=== PATIENT | male | born 1975 | race Caucasian/White ===

== ENCOUNTER 2016-08-20 18:16 | Emergency (ER) | payer SELFPAY ==
[~2016-08-20] VITALS: Ht 170.2 cm; Wt 82.1 kg
[2016-08-20 19:32] LABS: HEMATOCRIT 41.8 % (38.0-50.0); MCH 31.1 PG (29.0-34.0); MCHC 32.8 G/DL (30.0-36.0); MEAN PLAT.VOLUME 8.7 uM^3 (9.0-12.4); PLATELET COUNT 202 K/uL (156-360); RBC DIS.WIDTH-CV 15.7 % (11.8-14.6); RBC DIS.WIDTH-SD 55.5 % (39-53); WHITE BLOOD COUNT 7.5 K/uL (4.1-10.2)
[2016-08-20 19:42] LABS: CHLORIDE 107 mEq/L (99-109); POTASSIUM 4.6 mEq/L (3.7-5.4); SODIUM 147 mEq/L (136-147)
[2016-08-20 19:45] LABS: GLUCOSE 117 mg/dL (70-99)
[2016-08-20 19:46] LABS: ANION GAP 13 MEQ/L (2-14)
[2016-08-20 19:47] LABS: TOTAL BILIRUBIN 0.2 mg/dL (0.0-1.0)
[2016-08-20 19:48] LABS: ALKALINE PHOSPHATASE 143 IU/L (3-129); SERUM ETHYL ALCOHOL 287 mg/dL
[2016-08-20 19:49] LABS: GFR ESTIMATE (CALCULATED) > 59 mL/min/
[2016-08-20 19:50] LABS: UREA NITROGEN (BUN) 10 mg/dL (9-23)
[2016-08-20 19:52] LABS: CREATINE KINASE 315 IU/L (1-294); TOTAL CK 315 IU/L (1-294)
[2016-08-20 19:57] LABS: CK-MB 1.3 ng/mL (0.0-4.9)
[2016-08-20] MEDS ORDERED: KEPPRA500 MG PO (20:51)
[2016-08-20 21:14] VITALS: BP 117/77
== END 2016-08-20 21:16 | disposition left against medical advice (07) ==
LOC: EME 18:16
PROVIDERS: Emergency Medicine
DX: G40.909 Epilepsy, unspecified, not intractable, without status epilepticus (principal); F17.200 Nicotine dependence, unspecified, uncomplicated
CPT/HCPCS: 70450; 80053; 82550; 82553; 85027; 93005; 99281; 99284; G0480; J7030

== ENCOUNTER 2016-09-19 19:26 | Emergency (ER) | payer OTHER ==
[~2016-09-19] VITALS: Ht 170.2 cm; Wt 88.7 kg
[~2016-09-19 19:26] MED LIST: KEPPRA500 MG PO
[2016-09-19] MEDS ORDERED: NOVOLOG MI100 UNIT/4 SC (19:55)
[2016-09-19] MEDS ORDERED: FLEXERIL10 MG PO (21:19)
[2016-09-19] MEDS ORDERED: MOTRIN800 MG PO (21:19)
[2016-09-19 21:38] VITALS: BP 164/77
== END 2016-09-19 21:41 | disposition home or self-care (01) ==
LOC: EME 19:26 → RME 19:26
DX: S20.212A Contusion of left front wall of thorax, initial encounter (principal); S30.0XXA Contusion of lower back and pelvis, initial encounter; S70.02XA Contusion of left hip, initial encounter; Y03.0XXA Assault by being hit or run over by motor vehicle, initial encounter; V03.10XA Pedestrian on foot injured in collision with car, pick-up truck or van in traffic accident, initial encounter; Y92.410 Unspecified street and highway as the place of occurrence of the external cause; I10 Essential (primary) hypertension; E11.9 Type 2 diabetes mellitus without complications
CPT/HCPCS: 71100; 72100; 73502; 99281; 99284

== ENCOUNTER 2016-09-20 14:22 | Emergency (ER) | payer SELFPAY ==
[~2016-09-20] VITALS: Ht 170.2 cm; Wt 81.8 kg
[~2016-09-20 14:22] MED LIST changes: +FLEXERIL10 MG PO; +MOTRIN800 MG PO; +NOVOLOG MI100 UNIT/4 SC
[2016-09-20 16:46] LABS: HEMATOCRIT 48.2 % (38.0-50.0); MCH 29.9 PG (29.0-34.0); MCHC 32.2 G/DL (30.0-36.0); MCV 93.1 FL (86-99); MEAN PLAT.VOLUME 9.6 uM^3 (9.0-12.4); PLATELET COUNT 353 K/uL (156-360); RBC DIS.WIDTH-CV 13.1 % (11.8-14.6); RBC DIS.WIDTH-SD 44.7 % (39-53); RED BLOOD COUNT 5.18 M/uL (4.00-5.50); WHITE BLOOD COUNT 9.7 K/uL (4.1-10.2)
[2016-09-20 16:58] LABS: CHLORIDE 105 mEq/L (99-109); POTASSIUM 3.8 mEq/L (3.7-5.4); SODIUM 146 mEq/L (136-147)
[2016-09-20 17:00] LABS: GLUCOSE 158 mg/dL (70-99)
[2016-09-20 17:02] LABS: ANION GAP 21 MEQ/L (2-14)
[2016-09-20 17:03] LABS: SERUM ETHYL ALCOHOL 383 mg/dL
[2016-09-20 17:04] LABS: GFR ESTIMATE (CALCULATED) > 59 mL/min/
[2016-09-20 17:05] LABS: UREA NITROGEN (BUN) 8 mg/dL (9-23)
[2016-09-20 18:22] VITALS: BP 131/82
== END 2016-09-20 18:23 | disposition left against medical advice (07) ==
LOC: EME 14:22
PROVIDERS: Emergency Medicine
DX: F10.129 Alcohol abuse with intoxication, unspecified (principal); Y90.8 Blood alcohol level of 240 mg/100 ml or more; R45.1 Restlessness and agitation; E11.9 Type 2 diabetes mellitus without complications; Z79.4 Long term (current) use of insulin
CPT/HCPCS: 80048; 85027; 99281; 99285; G0480